=== PATIENT | male | born 1950 | race Caucasian/White ===

== ENCOUNTER → 2016-07-22 | Outpatient (CLI) | payer OTHER ==
[2016-07-22 08:59] LABS: BASO % 0.3 %; BASO ABS # 0.02 K/uL (0-0.2); COMPLETE YES; EOS % 2.1 %; HEMATOCRIT 43.6 % (42-52); LYMPH % 37.3 %; LYMPH ABS # 2.29 K/uL (1.2-3.4); MEAN CELL VOLUME 88.8 fL (80-100); MEAN CORPUSCULAR HEMOGLOBIN 30.5 pg (25-34); MEAN CORPUSCULAR HGB CONC 34.4 g/dl (32-36); MEAN PLATELET VOLUME 9.4 fL (7.4-10.4); MONO % 11.1 %; NEUT % 49.2 %; PLATELET COUNT 257 K/uL (130-400); RED BLOOD COUNT 4.91 M/uL (4.7-6.1); WHITE BLOOD COUNT 6.14 K/uL (4.8-10.8)
[2016-07-22 09:14] LABS: ALT/SGPT 52 U/L (12-78); BLOOD UREA NITROGEN 23 mg/dl (7-18); BUN/CREATININE RATIO 22.7 (10-20); CALCIUM 8.8 mg/dl (8.5-10.1); CARBON DIOXIDE 25 mmol/L (21-32); CHLORIDE 105 mmol/L (98-107); CHOLESTEROL 260 mg/dl (0-200); GLUCOSE 125 mg/dl (70-99); POTASSIUM 3.9 mmol/L (3.5-5.1); SODIUM 140 mmol/L (136-145); TRIGLYCERIDES 146 mg/dl (0-150); URIC ACID 6.7 mg/dl (2.6-7.2); VERY LOW DENSITY LIPOPROT CALC 29 mg/dl
[2016-07-22 09:23] LABS: ALB/GLOB RATIO 1.2 (0.9-2); ALKALINE PHOSPHATASE 65 U/L (45-117); AST/SGOT 22 U/L (15-37); CHOLESTEROL/HDL RATIO 6.2; HDL CHOLESTEROL 42 mg/dl; LDL CHOLESTEROL CALCULATED 189 mg/dl; PHOSPHORUS 2.4 mg/dl (2.5-4.9)
[2016-07-22 09:31] LABS: ESTIMATED AVERAGE GLUCOSE 134 mg/dl; HA1C FLAG Normal (Normal)
[2016-07-24 11:24] LABS: C-REACTIVE PROT HIGHSEN 0.4 MG/L
--- NOTE | 2016-07-26 12:47 | CODING QUERY MEDICAL NECESSITY ---
SUPPORTING DIAGNOSIS NEEDED Dr. Koo, A supporting diagnosis is required for the test/procedure performed on this patient in order for us to be reimbursed by the patient's insurance. Please provide a supporting diagnosis for the following test/procedure listed below next to the test name along with your signature. *If there is no additional diagnosis for this patient that would support the following test/procedure please document that below next to the test/procedure. Test(s)/Procedure(s) that require a supporting diagnosis: * ([id number]) VITAMIN D ASSAY DIAGNOSIS: * ([id number]) B12 VITAMIN LEVEL DIAGNOSIS: * ([id number]) C-REACTIVE PROTEIN HIGH SENSITIVITY DIAGNOSIS: DATE OF SERVICE: 07/22/16 Provider Signature: Date: Thank you [facility] Information Management Once completed, please kindly fax back to [phone] For questions please call [phone]
== END | disposition home or self-care (01) ==
LOC: C.LAB 07:08
PROVIDERS: ATTEND Family Medicine
DX: E11.9 Type 2 diabetes mellitus without complications (principal); E55.9 Vitamin D deficiency, unspecified; D51.9 Vitamin B12 deficiency anemia, unspecified; I25.10 Atherosclerotic heart disease of native coronary artery without angina pectoris

== ENCOUNTER → 2016-12-30 | Outpatient (CLI) | payer OTHER ==
[2016-12-30 08:09] LABS: BASO % 0.3 %; BASO ABS # 0.02 K/uL (0-0.2); COMPLETE YES; EOS % 1.7 %; HEMATOCRIT 43.3 % (42-52); LYMPH % 38.5 %; LYMPH ABS # 2.44 K/uL (1.2-3.4); MEAN CELL VOLUME 88.4 fL (80-100); MEAN CORPUSCULAR HGB CONC 33.9 g/dl (32-36); MEAN PLATELET VOLUME 9.6 fL (7.4-10.4); MONO % 12.3 %; NEUT % 47.2 %; PLATELET COUNT 234 K/uL (130-400); WHITE BLOOD COUNT 6.34 K/uL (4.8-10.8)
[2016-12-30 08:37] LABS: ESTIMATED AVERAGE GLUCOSE 131 mg/dl; HA1C FLAG Normal (Normal)
[2016-12-30 08:43] LABS: ALT/SGPT 46 U/L (12-78); BLOOD UREA NITROGEN 18 mg/dl (7-18); BUN/CREATININE RATIO 17.6 (10-20); CALCIUM 8.9 mg/dl (8.5-10.1); CARBON DIOXIDE 26 mmol/L (21-32); CHLORIDE 106 mmol/L (98-107); CHOLESTEROL 197 mg/dl (0-200); GLUCOSE 121 mg/dl (70-99); POTASSIUM 3.7 mmol/L (3.5-5.1); SODIUM 139 mmol/L (136-145)
[2016-12-30 08:52] LABS: ALB/GLOB RATIO 1.1 (0.9-2); ALKALINE PHOSPHATASE 69 U/L (45-117); AST/SGOT 27 U/L (15-37); CHOLESTEROL/HDL RATIO 5.3; HDL CHOLESTEROL 37 mg/dl; LDL CHOLESTEROL CALCULATED 135 mg/dl; PHOSPHORUS 2.5 mg/dl (2.5-4.9); TRIGLYCERIDES 126 mg/dl (0-150); VERY LOW DENSITY LIPOPROT CALC 25 mg/dl
== END | disposition home or self-care (01) ==
LOC: C.LAB 07:10
PROVIDERS: ATTEND Family Medicine
DX: R73.09 Other abnormal glucose (principal); E55.9 Vitamin D deficiency, unspecified; D51.9 Vitamin B12 deficiency anemia, unspecified

== ENCOUNTER → 2017-07-07 | Outpatient (CLI) | payer OTHER ==
[2017-07-07 08:32] LABS: BASO % 0.5 %; BASO ABS # 0.03 K/uL (0-0.2); EOS % 1.7 %; HEMOGLOBIN 15.5 g/dL (14.0-18.0); IG# 0.01 K/uL (0.00-0.02); LYMPH % 44.3 %; LYMPH ABS # 2.61 K/uL (1.2-3.4); MEAN CELL VOLUME 87.2 fL (80-100); MEAN CORPUSCULAR HGB CONC 34.4 g/dl (32-36); MONO % 10.7 %; MONO ABS # 0.63 K/uL (0.11-0.59); NEUT % 42.6 %; NEUT ABS # 2.51 K/uL (1.4-6.5); PLATELET COUNT 223 K/uL (130-400); RED CELL DISTRIBUTION WIDTH CV 13.3 % (11.5-14.5); RED CELL DISTRIBUTION WIDTH SD 42.3 fL (36.4-46.3); WHITE BLOOD COUNT 5.89 K/uL (4.8-10.8)
[2017-07-07 09:03] LABS: ALBUMIN 3.9 gm/dl (3.4-5.0); ALT/SGPT 75 U/L (12-78); BLOOD UREA NITROGEN 27 mg/dl (7-18); CARBON DIOXIDE 25 mmol/L (21-32); CHOLESTEROL 259 mg/dl (0-200); CREATININE 1.16 mg/dl (0.60-1.40); GLUCOSE 158 mg/dl (70-99); POTASSIUM 3.7 mmol/L (3.5-5.1); SODIUM 137 mmol/L (136-145); URIC ACID 7.1 mg/dl (2.6-7.2)
[2017-07-07 09:12] LABS: ALKALINE PHOSPHATASE 77 U/L (45-117); AST/SGOT 41 U/L (15-37); LDL CHOLESTEROL CALCULATED 181 mg/dl; TOTAL PROTEIN 7.4 gm/dl (6.4-8.2); TRANSFERRIN 184 mg/dl (200-360)
[2017-07-07 10:28] LABS: HEMOGLOBIN A1C 7.3 % (4.5-5.6)
--- NOTE | 2017-07-20 12:07 | CODING QUERY MEDICAL NECESSITY ---
CQSUPPORTING DIAGNOSIS NEEDED A supporting diagnosis is required for the test/procedure performed on this patient in order for us to be reimbursed by the patient's insurance. Please provide a supporting diagnosis for the following test/procedure listed below next to the test name along with your signature. *If there is no additional diagnosis for this patient that would support the following test/procedure please document that below next to the test/procedure. Test(s)/Procedure(s) that require a supporting diagnosis: DOS 07/07/17 GLYCATED HEMOGLOBIN TEST PROSTATE SPECIFIC TEST Provider Signature: Date: Thank you Catalina Higgins [facility] Information Management Once completed, please kindly fax back to [phone] For questions please call [phone]
== END | disposition home or self-care (01) ==
LOC: C.LAB 07:02
PROVIDERS: ATTEND Family Medicine
DX: E88.81 Metabolic syndrome and other insulin resistance (principal); E55.9 Vitamin D deficiency, unspecified; D51.9 Vitamin B12 deficiency anemia, unspecified; E78.9 Disorder of lipoprotein metabolism, unspecified; R53.83 Other fatigue